=== PATIENT | female | born 1995 | race Caucasian/White ===

== ENCOUNTER 2018-09-21 14:26 | Emergency (ER) | payer OTHER ==
[2018-09-21 14:38] VITALS: BP 150/88
[2018-09-21 15:24] LABS: BILIRUBIN,URINE NEGATIVE (NEGATIVE); GLUCOSE, URINE (UA) NEGATIVE (NEGATIVE); KETONES,URINE (UA) 40 mg/dL (NEGATIVE); LEUKOCYTE ESTERASE, URINE NEGATIVE (NEGATIVE); NITRITE,URINE NEGATIVE (NEGATIVE); OCCULT BLOOD,URINE LARGE (NEGATIVE); PROTEIN,URINE NEGATIVE (NEGATIVE); UROBILINOGEN,URINE 0.2 (NORMAL) E.U./dL (NORMAL)
[2018-09-21 15:26] LABS: BASOPHILS % (AUTO) 0.6 %; EOSINOPHILS # (AUTO) 0.1 10^3/uL (0.0-0.7); EOSINOPHILS % (AUTO) 1.8 %; HGB - HEMOGLOBIN 15.7 g/dL (12.0-16.0); LYMPHOCYTES # (AUTO) 1.7 10^3/uL (1.5-3.5); LYMPHOCYTES % (AUTO) 25.1 %; MEAN CORPUSCULAR HEMOGLOBIN 30.3 pg (27.0-31.0); MEAN CORPUSCULAR HGB CONC 34.4 g/dL (32.0-36.0); MEAN CORPUSCULAR VOLUME 88.1 fL (81.0-99.0); MEAN PLATELET VOLUME 9.5 fL (7.9-10.8); MONOCYTES # (AUTO) 0.7 10^3/uL (0.0-1.0); MONOCYTES % (AUTO) 9.4 %; NEUTROPHILS # (AUTO) 4.4 10^3/uL (1.5-6.6); NEUTROPHILS % (AUTO) 63.1 %; PLT - PLATELET COUNT 178 10^3/uL (130-450); RED BLOOD COUNT 5.18 10^6/uL (4.20-5.40); RED CELL DISTRIBUTION WIDTH 13.6 % (12.0-15.0); WHITE BLOOD COUNT 6.9 x10^3/uL (4.8-10.8)
[2018-09-21 15:30] LABS: CLARITY,URINE CLEAR (CLEAR); HCG UR QUAL NEGATIVE
[2018-09-21 15:31] LABS: ALBUMIN 4.8 g/dL (3.2-5.5); ALBUMIN/GLOBULIN RATIO 1.5 (1.0-2.2); BILIRUBIN,TOTAL 1.1 mg/dL (0.2-1.0); CALCIUM 9.6 mg/dL (8.5-10.3); CREATININE 0.9 mg/dL (0.4-1.0); TOTAL PROTEIN 7.9 g/dL (6.7-8.2)
[2018-09-21 15:33] LABS: BACTERIA,URINE Few /HPF (None Seen); MUCUS,URINE Few Strands; RBC,URINE 0-5 /HPF (0-5); SQUAMOUS EPITHELIAL CELL,UR FEW Squamous (<= Few)
--- NOTE | 2018-09-21 15:49 | ED Physician Documentation ---
PD HPI FEMALE - Stated complaint Stated Complaint: ABD PX/ FEM - Chief complaint Chief Complaint: Abd Pain - History obtained from History obtained from: Patient - History of Present Illness Timing - onset: How many days ago (9) Timing - duration: Days (9) Timing - details: Gradual onset Pain level max: 6 Pain level max: 4 Associated symptoms: Pelvic pain (Cramping, midline similar to prior menses) Contributing factors: Depo (nexplanon). No: , Oral contraceptive Similar symptoms before: Has not had sx before Recently seen: Not recently seen - Additional information Additional information: Patient is a 23-year-old female who has Nexplanon in her left upper arm since February. She has had intermittent menses since that time. This time she is having increased cramping and lasting longer than usual. Has been bleeding for 9 days. Prior to the Nexplanon her normal menses was 5 days of heavy bleeding and 2 days of drawer maker. Has taken 2 home tests which have been negative. Review of Systems Constitutional: denies: Fever GI: reports: Nausea (Occasionally). denies: Vomiting, Diarrhea, Hematemesis : denies: Dysuria, Frequency, Hesitancy Skin: denies: Rash Musculoskeletal: denies: Neck pain, Back pain Neurologic: denies: Headache PD PAST MEDICAL HISTORY - Past Medical History Past Medical History: Yes Psych: Post traumatic stress disorder Musculoskeletal: Fibromyalgia - Past Surgical History Past Surgical History: Yes General: Appendectomy - Present Medications Home Medications: Ambulatory Orders Medication Instructions Recorded Confirmed No Known Home Medications 09/21/18 09/21/18 - Allergies Allergies/Adverse Reactions: Allergies Allergy/AdvReac Type Severity Reaction Status Date / Time Penicillins Allergy Unknown Verified 09/21/18 14:37 - Social History Does the pt smoke?: No Smoking Status: Never smoker Does the pt drink ETOH?: No Does the pt have substance abuse?: No Substance Use and Type: Marijuana - Immunizations Immunizations are current?: Yes - POLST Patient has POLST: No PD ED PE NORMAL - Vitals Vital signs reviewed: Yes - General General: Alert and oriented X 3, No acute distress - HEENT HEENT: Moist mucous membranes - Neck Neck: Supple, no meningeal sign - Cardiac Cardiac: RRR - Respiratory Respiratory: No respiratory distress, Clear bilaterally - Abdomen Abdomen: Soft, Non tender, Non distended - Female Female : Pt declined - Derm Derm: Warm and dry - Neuro Neuro: Alert and oriented X 3 - Psych Psych: Normal mood, Normal affect Results - Vitals Vitals: Vital Signs - 24 hr 09/21/18 14:35 Temperature 36.7 C Heart Rate 80 Respiratory 18 Rate Blood Pressure 150/88 H O2 Saturation 98 Oxygen O2 Source Room air - Labs Labs: Laboratory Tests 09/21/18 09/21/18 09/21/18 15:00 15:00 15:14 WBC 6.9 RBC 5.18 Hgb 15.7 Hct 45.6 MCV 88.1 MCH 30.3 MCHC 34.4 RDW 13.6 Plt Count 178 MPV 9.5 Neut # (Auto) 4.4 Lymph # (Auto) 1.7 Grimes # (Auto) 0.7 Eos # (Auto) 0.1 Baso # (Auto) 0.0 Absolute Nucleated RBC 0.00 Nucleated RBC % 0.0 Sodium Potassium Chloride Carbon Dioxide Anion Gap BUN Creatinine Estimated GFR (MDRD) Glucose Calcium Total Bilirubin AST ALT Alkaline Phosphatase Total Protein Albumin Globulin Albumin/Globulin Ratio Lipase Urine Color YELLOW Urine Clarity CLEAR Urine pH 6.0 Ur Specific Reynolds >=1.030 H >=1.030 H Urine Protein NEGATIVE Urine Glucose (UA) NEGATIVE Urine Ketones 40 H Urine Occult Blood LARGE H Urine Nitrite NEGATIVE Urine Bilirubin NEGATIVE Urine Urobilinogen 0.2 (NORMAL) Ur Leukocyte Esterase NEGATIVE Urine RBC 0-5 Urine WBC 4-5 Ur Squamous Epith Cells FEW Squamous Urine Bacteria Few Urine Mucus Few Strands Ur Microscopic Review INDICATED Urine Culture Comments NOT INDICATED Urine HCG, Qual NEGATIVE 09/21/18 15:14 WBC RBC Hgb Hct MCV MCH MCHC RDW Plt Count MPV Neut # (Auto) Lymph # (Auto) Grimes # (Auto) Eos # (Auto) Baso # (Auto) Absolute Nucleated RBC Nucleated RBC % Sodium 140 Potassium 3.4 L Chloride 107 Carbon Dioxide 23 Anion Gap 10.0 BUN 9 Creatinine 0.9 Estimated GFR (MDRD) 78 L Glucose 94 Calcium 9.6 Total Bilirubin 1.1 H AST 17 ALT 20 Alkaline Phosphatase 69 Total Protein 7.9 Albumin 4.8 Globulin 3.1 Albumin/Globulin Ratio 1.5 Lipase 19 L Urine Color Urine Clarity Urine pH Ur Specific Reynolds Urine Protein Urine Glucose (UA) Urine Ketones Urine Occult Blood Urine Nitrite Urine Bilirubin Urine Urobilinogen Ur Leukocyte Esterase Urine RBC Urine WBC Ur Squamous Epith Cells Urine Bacteria Urine Mucus Ur Microscopic Review Urine Culture Comments Urine HCG, Qual PD MEDICAL DECISION MAKING - ED course Complexity details: reviewed results, re-evaluated patient, considered differential, d/w patient, d/w family ED course: Patient is a 23-year-old female with dysfunctional uterine bleeding, likely secondary to the Nexplanon. She is well-appearing, nontoxic. Vital signs are stable. Hemoglobin is normal. All of her follow-up with her doctor for further care. No evidence of or ectopic . No evidence of ruptured ovarian cyst. No evidence of ovarian torsion. Patient counseled regarding signs and symptoms for which I believe and urgent re-evaluation would be necessary. Patient with good understanding of and agreement to plan and is comfortable going home at this time This document was made in part using voice recognition software. While efforts are made to proofread this document, sound alike and grammatical errors may occur. Departure - Departure Disposition: 01 Home, Self Care Clinical Impression: Dysfunctional uterine bleeding Condition: Good Instructions: ED Bleed Irregular Vaginal Follow-Up: your,doctor in 1 week [Other] Comments: All of your labs and blood counts are normal today. Follow-up with your doctor for further care. This is likely secondary to the Nexplanon. Return if you worsen. Discharge Date/Time: 09/21/18 16:03
== END 2018-09-21 16:03 | disposition home or self-care (01) ==
LOC: ED 14:26
DX: N93.8 Other specified abnormal uterine and vaginal bleeding (principal)
CPT/HCPCS: 36415; 80053; 81001; 81003; 81025; 83690; 85025; 87086; 99283

== ENCOUNTER 2019-05-12 12:11 | Emergency (ER) | payer OTHER ==
--- NOTE | 2019-05-12 12:28 | ED Physician Documentation ---
PD GOMEZ BLANC - Stated complaint Stated Complaint: R FACIAL LUMP - Chief complaint Chief Complaint: General - History obtained from History obtained from: Patient - History of Present Illness Timing - onset: Other (She is also concerned about significant weight loss. She had been and had considerable weight gain during but has had about a 70 pound weight loss which includes to below her prepregnancy weight over the last 6 months. She has not nausea often. She states she is only eating about once a day because of this. She denies any abdominal pain per se.) Timing - details: Gradual onset (She has not noticed some lymph node on the right side of the neck for several months waxing and waning with intermittent tenderness. She noticed another one in the last few days adjacent to it and some tenderness around the right chest border with a feeling of lymph node there. She also has some pain in the right elbow and knee. She is concerned about causes for this including immune disorders, etc), Waxing and waning Location: Other (right side of neck and now right parasternal chestwall.) Improves: Other (She has not taken any medication for it.) Associated symptoms: No: Fever, Congestion, Rhinorrhea, Facial swelling Similar symptoms before: Has not had sx before Recently seen: Not recently seen Review of Systems Constitutional: reports: Weight Loss. denies: Fever, Chills, Myalgias, Fatigue Nose: denies: Rhinorrhea / runny nose, Congestion Throat: denies: Sore throat Respiratory: denies: Cough GI: reports: Nausea, Vomiting (occasional in mornings). denies: Diarrhea : denies: Dysuria, Frequency Skin: denies: Rash Musculoskeletal: reports: Other (aching in elbow and knees the past several days.) Neurologic: denies: Generalized weakness, Near syncope Psychiatric: denies: Depressed Endocrine: reports: Weight loss. denies: Easy bruising / bleeding PD PAST MEDICAL HISTORY - Past Medical History Cardiovascular: None Respiratory: None Neuro: None Endocrine/Autoimmune: None Psych: Post traumatic stress disorder Musculoskeletal: Fibromyalgia - Past Surgical History Past Surgical History: Yes General: Appendectomy - Present Medications Home Medications: Ambulatory Orders Medication Instructions Recorded Confirmed Famotidine 20 mg PO DAILY #30 tablet 05/12/19 Naproxen 375 mg PO BID #20 tablet 05/12/19 Ondansetron Odt [Zofran] 4 mg TL Q6H PRN #30 tablet 05/12/19 - Allergies Allergies/Adverse Reactions: Allergies Allergy/AdvReac Type Severity Reaction Status Date / Time Penicillins Allergy Unknown Verified 05/12/19 12:20 - Social History Does the pt smoke?: No Smoking Status: Never smoker Does the pt drink ETOH?: No Does the pt have substance abuse?: No - Immunizations Immunizations are current?: Yes - POLST Patient has POLST: No PD ED PE NORMAL - Vitals Vital signs reviewed: Yes - General General: Alert and oriented X 3, No acute distress, Well developed/nourished - HEENT HEENT: Atraumatic - Neck Neck: Supple, no meningeal sign, No bony TTP, Other (right lateral adenopathy about 1.5 cm without redness nor fluctuance. Small few mm sized one above it. There is perhaps a small bump right parasternal cartilage, not in breast tissue. consider small node. ) - Cardiac Cardiac: RRR, No murmur - Respiratory Respiratory: Clear bilaterally - Abdomen Abdomen: Soft, Non tender, Non distended, No organomegaly - Derm Derm: Normal color, Warm and dry, No rash - Extremities Extremities: No tenderness to palpate, Normal ROM s pain, No edema, No calf tenderness / cord - Neuro Neuro: Alert and oriented X 3, No motor deficit, Normal speech Results - Vitals Vitals: Oxygen O2 Source Room air - Labs Labs: Laboratory Tests 05/12/19 05/12/19 05/12/19 12:44 12:44 12:44 WBC 7.0 RBC 5.18 Hgb 15.2 Hct 45.9 MCV 88.6 MCH 29.4 MCHC 33.2 RDW 14.1 Plt Count 209 MPV 9.0 Neut # (Auto) 5.2 Lymph # (Auto) 1.2 L Wolfe # (Auto) 0.5 Eos # (Auto) 0.0 Baso # (Auto) 0.0 Absolute Nucleated RBC 0.00 Nucleated RBC % 0.0 ESR 5 Sodium 138 Potassium 3.3 L Chloride 104 Carbon Dioxide 21 Anion Gap 13.0 BUN 9 Creatinine 0.9 Estimated GFR (MDRD) 77 L Glucose 96 Calcium 9.2 Total Bilirubin 1.3 H AST 16 ALT 13 Alkaline Phosphatase 60 C-Reactive Protein < 1.0 Total Protein 8.1 Albumin 4.4 Globulin 3.7 Albumin/Globulin Ratio 1.2 Lipase 20 L TSH Serum HCG, Qual 05/12/19 05/12/19 12:44 12:44 WBC RBC Hgb Hct MCV MCH MCHC RDW Plt Count MPV Neut # (Auto) Lymph # (Auto) Wolfe # (Auto) Eos # (Auto) Baso # (Auto) Absolute Nucleated RBC Nucleated RBC % ESR Sodium Potassium Chloride Carbon Dioxide Anion Gap BUN Creatinine Estimated GFR (MDRD) Glucose Calcium Total Bilirubin AST ALT Alkaline Phosphatase C-Reactive Protein Total Protein Albumin Globulin Albumin/Globulin Ratio Lipase TSH 1.17 Serum HCG, Qual NEGATIVE - Rads (name of study) chest xray Radiology: Prelim report reviewed (normal), EMP read contemporaneously, See rad report PD MEDICAL DECISION MAKING - ED course Complexity details: reviewed results (no obvious abnormal at this time. Refer to PMD for ? lymph node biopsy.), re-evaluated patient (She is also concerned about significant weight loss. She had been and had considerable weight gain during but has had about a 70 pound weight loss which includes to below her prepregnancy weight over the last 6 months. She has not nausea often. She states she is only eating about once a day because of this. She denies any abdominal pain per se.), considered differential (She has had a small lymph node in the right side of her neck for several months. It occasionally tender. Is not particularly tender today. She did notice a second 1 near it the last few days and also had a feeling of tenderness on the left parasternal area. She feels slightly achy in her elbow and knee. She is concerned about autoimmune disorders. She had not been to her primary care. She is here for evaluation.), d/w patient Departure - Departure Disposition: 01 Home, Self Care Clinical Impression: Adenopathy, cervical Arthralgia Qualifiers: Joint pain location: unspecified Qualified Code(s): M25.50 - Pain in unspecified joint Nausea & vomiting Qualifiers: Vomiting type: unspecified Vomiting Intractability: non-intractable Qualified Code(s): R11.2 - Nausea with vomiting, unspecified Condition: Stable Record reviewed to determine appropriate education?: Yes Instructions: ED Cervical Adenitis No Abx Tx, ED Nausea Vomiting [facility] [place] [facility] [Provider Group] Prescriptions: Famotidine 20 mg PO DAILY #30 tablet Naproxen 375 mg PO BID #20 tablet Ondansetron Odt [Zofran] 4 mg TL Q6H PRN #30 tablet PRN Reason: Nausea / Vomiting Comments: Your basic blood tests urine normal with just a slightly low potassium which would not really factor into your current symptoms. There is no indication of obvious infection, autoimmune disorder, blood disorder. Regarding the ongoing lymph node in the neck, the next step could potentially be a lymph node biopsy which can be arranged through your primary care or I also included [facility] as a referral. For your nausea and decreased appetite, try famotidine daily for the next month. Add ondansetron as needed for nausea. There may be an ongoing stomach irritation. You can bring a stool sample to your primary care when you get an appointment. They can tested for a germ in your stomach called Helicobacter Pylori. Use Tylenol if needed for pains. Naproxen twice daily with some food to try to help with the pains. Discharge Date/Time: 05/12/19 14:28
[2019-05-12 13:05] LABS: BASOPHILS % (AUTO) 0.3 %; EOSINOPHILS % (AUTO) 0.6 %; HGB - HEMOGLOBIN 15.2 g/dL (12.0-16.0); LYMPHOCYTES # (AUTO) 1.2 10^3/uL (1.5-3.5); LYMPHOCYTES % (AUTO) 17.5 %; MEAN CORPUSCULAR HEMOGLOBIN 29.4 pg (27.0-31.0); MEAN CORPUSCULAR HGB CONC 33.2 g/dL (32.0-36.0); MEAN CORPUSCULAR VOLUME 88.6 fL (81.0-99.0); MONOCYTES # (AUTO) 0.5 10^3/uL (0.0-1.0); MONOCYTES % (AUTO) 7.2 %; NEUTROPHILS # (AUTO) 5.2 10^3/uL (1.5-6.6); NEUTROPHILS % (AUTO) 74.4 %; PLT - PLATELET COUNT 209 10^3/uL (130-450); RED BLOOD COUNT 5.18 10^6/uL (4.20-5.40); RED CELL DISTRIBUTION WIDTH 14.1 % (12.0-15.0)
[2019-05-12 13:22] LABS: ALBUMIN 4.4 g/dL (3.2-5.5); ALBUMIN/GLOBULIN RATIO 1.2 (1.0-2.2); ALKALINE PHOSPHATASE 60 IU/L (42-121); ALT ALANINE AMINOTRANSFERASE 13 IU/L (10-60); AST ASPARTATE AMINOTRANSFERASE 16 IU/L (10-42); BILIRUBIN,TOTAL 1.3 mg/dL (0.2-1.0); BUN - BLOOD UREA NITROGEN 9 mg/dL (6-20); CALCIUM 9.2 mg/dL (8.5-10.3); CARBON DIOXIDE - CO2 21 mmol/L (21-32); CHLORIDE 104 mmol/L (101-111); CREATININE 0.9 mg/dL (0.4-1.0); GFR - MDRD 77 (>89); GLUCOSE 96 mg/dL (70-100); LIPASE 20 U/L (22-51); SODIUM 138 mmol/L (135-145); TOTAL PROTEIN 8.1 g/dL (6.7-8.2)
--- NOTE | 2019-05-12 13:38 | XRAY Report ---
Reason: dyspnea; neck adenopathy Procedure Date: 05/12/2019 Accession Number: [id number] / [id number] Procedure: XR - Chest 2 View X-Ray CPT Code: 14771 FULL RESULT: EXAM: CHEST RADIOGRAPHY EXAM DATE: 05/12/2019 01:24 PM. CLINICAL HISTORY: Dyspnea; neck adenopathy. COMPARISON: None. TECHNIQUE: 2 views. FINDINGS: Lungs/Pleura: No focal opacities evident. No pleural effusion. No pneumothorax. Normal volumes. Mediastinum: Heart and mediastinal contours are unremarkable. Other: None. IMPRESSION: Normal 2-view chest radiography. RADIA
[2019-05-12 13:55] LABS: CRP - C-REACTIVE PROTEIN < 1.0 mg/dL (0-1.0); HCG,QUALITATIVE BLOOD NEGATIVE
[2019-05-12 14:09] VITALS: BP 118/65
== END 2019-05-12 14:28 | disposition home or self-care (01) ==
LOC: ED 12:11
DX: R59.0 Localized enlarged lymph nodes (principal); R11.2 Nausea with vomiting, unspecified; M25.521 Pain in right elbow; M25.561 Pain in right knee; M79.7 Fibromyalgia
CPT/HCPCS: 36415; 71046; 80053; 83690; 84443; 84703; 85025; 85651; 86140; 87338; 99283; 99284

== ENCOUNTER 2019-07-09 06:02 | Outpatient (CLI) | payer OTHER ==
[2019-07-09] MEDS ORDERED: IOVERSOL 320 50 ML VIAL ONE (06:25)
[2019-07-09] MEDS ORDERED: IOVERSOL 320 100 ML VIAL IVP ONE ×2 (06:25→09:26)
--- NOTE | 2019-07-09 09:16 | CT Report ---
Reason: WEIGHT LOSS ABNORMAL, CERVICAL LYMPHADENOPATHY, RI Procedure Date: 07/09/2019 Accession Number: [id number] / [id number] Procedure: CT - CHEST W CPT Code: FULL RESULT: EXAM: CT CHEST EXAM DATE: 07/09/2019 07:34 AM. CLINICAL HISTORY: Abnormal weight loss. Cervical lymphadenopathy. COMPARISONS: None. TECHNIQUE: Routine helical CT imaging was performed through the chest. IV contrast: 100 mL Optiray 320. Reconstructions: Coronal and sagittal. In accordance with CT protocol optimization, one or more of the following dose reduction techniques were utilized for this exam: automated exposure control, adjustment of mA and/or KV based on patient size, or use of iterative reconstructive technique. FINDINGS: Lungs/Pleura: Tiny scattered right lower lobe pulmonary nodules measuring 3-4 mm are seen (image 46 and 61/3). Tiny scattered left lower lobe pulmonary nodules measuring 4 mm are seen (image 48 and 52/3). The lungs are otherwise clear. There is no consolidation, effusion, or pneumothorax. Mediastinum: Heart size is normal. There is no pericardial effusion or adenopathy. Triangular soft tissue attenuation in the anterior mediastinum is seen likely representing residual thymic tissue (image 31/2). Bones: Unremarkable. Visualized Abdomen: See separate report. Other: None. IMPRESSION: 1. Tiny scattered bilateral pulmonary nodules measuring up to 4 mm, likely benign. If there is concern for underlying malignancy, then short-term followup CT could be considered for further evaluation. 2. No lymphadenopathy or mass identified. Residual thymic tissue is suggested in the anterior mediastinum. RADIA
--- NOTE | 2019-07-09 09:16 | CT Report ---
Reason: WEIGHT LOSS ABNORMAL, CERVICAL LYMPHADENOPATHY, RI Procedure Date: 07/09/2019 Accession Number: [id number] / [id number] Procedure: CT - Abdomen/Pelvis W CPT Code: FULL RESULT: EXAM: CT ABDOMEN AND PELVIS EXAM DATE: 07/09/2019 07:34 AM. CLINICAL HISTORY: Weight loss. Cervical lymphadenopathy. COMPARISONS: None. TECHNIQUE: Routine helical CT imaging was performed through the abdomen and pelvis. IV contrast: 100 mL Optiray 320. Enteric contrast: Yes. Reconstructions: Coronal and sagittal. In accordance with CT protocol optimization, one or more of the following dose reduction techniques were utilized for this exam: automated exposure control, adjustment of mA and/or KV based on patient size, or use of iterative reconstructive technique. FINDINGS: Lung Bases: See separate report. Liver: Normal. No masses. Gallbladder/Bile Ducts: Unremarkable. Spleen: Normal. Pancreas: Normal. Adrenal Glands: Normal. Kidneys: Normal. No masses or hydronephrosis. Peritoneal Cavity/Bowel: Normal. No free fluid, free air or adenopathy. No masses or acute inflammatory process. The appendix is not visualized and may be surgically absent. Pelvic Organs: Small physiologic cyst is seen in the right adnexa measuring 2.0 cm. Otherwise, the bladder and visualized pelvic organs are within normal limits. Vasculature: No aneurysms or other significant abnormality. Bones: No significant abnormality. Other: None. IMPRESSION: No intra-abdominal abnormality suggested. No adenopathy or mass is identified. RADIA
[2019-07-09] MEDS ORDERED: IOVERSOL 320 50 ML VIAL PO ONE (09:26)
--- NOTE | 2019-07-09 09:36 | CT Report ---
Reason: WEIGHT LOSS ABNORMAL, CERVICAL LYMPHADENOPATHY, RI Procedure Date: 07/09/2019 Accession Number: [id number] / [id number] Procedure: CT - SOFT TISSUE NECK W CPT Code: FULL RESULT: EXAM: CT SOFT TISSUE NECK WITH CONTRAST. EXAM DATE: 07/09/2019 07:34 AM. HISTORY: Abnormal weight loss, cervical adenopathy COMPARISONS: None. TECHNIQUE: Routine soft tissue neck CT protocol. Reconstructions: Coronal and sagittal. IV contrast: OPTI 320 100ML. In accordance with CT protocol optimization, one or more of the following dose reduction techniques were utilized for this exam: automated exposure control, adjustment of mA and/or KV based on patient size, or use of iterative reconstructive technique. FINDINGS: Visualized Intracranial Contents: Unremarkable. Orbits: Symmetric and unremarkable. Sinuses: Visualized paranasal sinuses and mastoid air cells are clear. Oral cavity: The visualized oral cavity is unremarkable. The floor of the mouth is symmetric. Pharynx: Pharyngeal mucosa is unremarkable. The base of the tongue is symmetric and unremarkable. The airway is patent. Larynx: Larynx and supraglottic airway are patent without mass lesion. Vocal cords are symmetric. The visualized trachea is unremarkable. Parotid and Submandibular Glands: Symmetric and unremarkable. Lymph Nodes: No enlarged lymph nodes are identified in the cervical, supraclavicular, and visualized superior mediastinal regions. Soft tissues: Soft tissues are unremarkable. No mass lesion or abnormal enhancement. Vascular Structures: Unremarkable. Thyroid Gland: Normal. Lung: The visualized lung apices are clear. Bones: No evidence of acute fracture or malalignment. There are mild degenerative changes. Other: None. IMPRESSION: Normal CT of the neck. RADIA
== END 2019-07-09 06:03 | disposition home or self-care (01) ==
LOC: DI 06:02
PROVIDERS: ATTEND Physician Assistant
DX: R91.8 Other nonspecific abnormal finding of lung field (principal); R07.81 Pleurodynia; R63.4 Abnormal weight loss; R59.0 Localized enlarged lymph nodes; R61 Generalized hyperhidrosis; R11.0 Nausea
CPT/HCPCS: 70491; 71260; 74177; Q9967

== ENCOUNTER 2020-09-24 12:05 | Outpatient (CLI) | payer OTHER ==
--- NOTE | 2020-09-25 08:33 | CT Report ---
PROCEDURE: CHEST WO INDICATIONS: PULMONARY NODULE TECHNIQUE: Noncontrast 5 mm thick sections acquired from the pulmonary apices to the posterior costophrenic angl es. 7 mm thick coronal and sagittal MIP reformats were then acquired. For radiation dose reduction, the following was used: automated exposure control, adjustment of mA and/or kV according to patient size. COMPARISON: Prior chest CT 07/09/2019 FINDINGS: Image quality: Excellent. Lungs and pleura: No acute air space opacities. There are several 2-3 mm scattered foci of what sheldon ears to be focal lung scarring but no nodular radiodensity is seen that would suggest presence of ear ly manifestation of neoplasm. No pleural effusions or pneumothorax. Central and peripheral airways a re patent and normal in caliber. Mediastinum: Heart size is normal. No pericardial effusion. No mediastinal adenopathy by size crit eria. Thoracic aorta and central pulmonary arteries are normal in size. Esophagus is normal in jim leeanna. No hiatal hernia. Bones and chest wall: No suspicious bony lesions. No vertebral body compression fractures. No axil dinh or supraclavicular adenopathy by size criteria. The thyroid is normal in size. Abdomen: Visualized upper abdominal solid organs and bowel loops appear normal in the absence of con trast. IMPRESSION: Several small 2-3 mm foci of what appears to be slight lung scarring, requiring no follow-up. No susp icion for underlying COPD is found, no mediastinal or hilar adenopathy is seen. Reviewed by: Perfecto Diane MD on 09/25/2020 8:32 AM PDT Approved by: Perfecto Diane MD on 09/25/2020 8:32 AM PDT Station ID: [id number]
== END 2020-09-24 12:06 | disposition home or self-care (01) ==
LOC: DI 12:05
PROVIDERS: ATTEND Physician Assistant
DX: R91.1 Solitary pulmonary nodule (principal)
CPT/HCPCS: 71250

== ENCOUNTER 2021-04-01 08:00 | Outpatient (CLI) | payer OTHER | END 2021-04-01 23:59 | disposition home or self-care (01) | LOC: LAB.R 08:00 | PROVIDERS: ATTEND Advanced Practice Midwife | DX: A59.00 Urogenital trichomoniasis, unspecified (principal) | CPT/HCPCS: 87491; 87591; 87661 ==

== ENCOUNTER 2021-04-01 08:00 | Outpatient (CLI) | payer OTHER ==
[2021-04-01 22:31] LABS: NEISSERIA GONORRHOEAE DNA NEGATIVE (NEGATIVE); TRICHOMONAS VAGINALIS DNA NEGATIVE (NEGATIVE)
[2021-04-01 22:32] LABS: CHLAMYDIA TRACHOMATIS DNA POSITIVE (NEGATIVE)
== END 2021-04-01 23:59 | disposition home or self-care (01) ==
LOC: LAB.WC 08:00
PROVIDERS: ATTEND Advanced Practice Midwife
DX: A59.00 Urogenital trichomoniasis, unspecified (principal)
CPT/HCPCS: 87491; 87591; 87661

== ENCOUNTER 2021-07-20 07:00 | Outpatient (CLI) | payer OTHER ==
[2021-07-20 21:24] LABS: CHLAMYDIA TRACHOMATIS DNA NEGATIVE (NEGATIVE); NEISSERIA GONORRHOEAE DNA NEGATIVE (NEGATIVE); TRICHOMONAS VAGINALIS DNA NEGATIVE (NEGATIVE)
== END 2021-07-20 23:59 | disposition home or self-care (01) ==
LOC: LAB 07:00
PROVIDERS: ATTEND Advanced Practice Midwife
DX: Z11.3 Encounter for screening for infections with a predominantly sexual mode of transmission (principal)
CPT/HCPCS: 87491; 87591; 87661